=== PATIENT | male | born 1960 | race Caucasian/White ===

== ENCOUNTER 2016-04-15 17:49 | Emergency (ER) | payer BC ==
[2016-04-15] MEDS ORDERED: Morphine INJ* 4 MG/ML 1 ML CARPUJECT ONE (18:15)
[2016-04-15] MEDS ORDERED: Morphine INJ* 4 MG/ML 1 ML CARPUJECT IV ONE (18:19)
[2016-04-15] MEDS ORDERED: HYDROmorphone INJ* 1 MG/ML CARPUJECT SYRINGE ONE (18:53)
[2016-04-15] MEDS ORDERED: LORazepam INJ* 2 MG/ML 1 ML VIAL IV ONE (19:36)
[2016-04-15] MEDS ORDERED: HYDROmorphone INJ* 1 MG/ML CARPUJECT SYRINGE IV ONE (19:36)
--- NOTE | 2016-04-15 19:38 | RAD ---
INDICATION: Left shoulder deformity COMPARISON: None. TECHNIQUE: 2 views of the left shoulder were obtained. FINDINGS: The humeral head appears to be dislocated inferiorly and anteriorly relative to the glenoid labrum. The visualized bones are cortically intact. IMPRESSION: ANTERIOR AND INFERIOR DISLOCATION OF THE LEFT HUMERAL HEAD RELATIVE TO THE GLENOID LABRUM.
[2016-04-15] MEDS ORDERED: oxyCODONE/Acetamin 5/325 MG* TAB PO ONE (20:14)
--- NOTE | 2016-04-15 20:21 | RAD ---
INDICATION: Post reduction attempt COMPARISON: Same day radiograph from 1832 hours TECHNIQUE: 2 views of the left shoulder were obtained on April 15, 2016 at 2008 hours. FINDINGS: The adequately corticated bones are in normal alignment. Joint spaces appear maintained. No fracture, dislocation or focal bony abnormality is seen. IMPRESSION: INTERVAL REDUCTION OF DISLOCATED LEFT SHOULDER. If the patient's symptoms persist, follow-up imaging is recommended.
[2016-04-15 20:59] VITALS: BP 129/60
--- NOTE | 2016-04-17 14:35 | ED ---
Terence Alvares Billy, scribed for Patrick Dodd MD on 04/15/16 at 1840 . Upper Extremity Pain - HPI Summary HPI Summary: Patient is a 55 year-old male coming to [facility] presenting with left shoulder pain with deformity after a fall at 1630. Fall from a wood pile at a height of approximately 3 feet. Improved with sling and appropriate position. ROM to distal hand is intact. Denies any head or neck injury and states that he was wearing a helmet and other protective gear. He reports mild tingling only in the fingers, but no numbness, tingling, or weakness elsewhere. No nausea or dizziness. Denies any previous dislocations. He is RH dominant. He denies any bloodthinner use. No known anesthesia reaction. - History of Current Complaint Chief Complaint: EDExtremityUpper Stated Complaint: FALL Time Seen by Provider: 04/15/16 18:24 Hx Obtained From: Patient Mechanism Of Injury: Fall From Height Of: - 3 feet Onset/Duration: Started Hours Ago, Still Present Timing: Constant Severity Initially: Moderate Severity Currently: Moderate Pain Location: Shoulder Alleviating Factor(s): Rest, Other - position Associated Signs & Symptoms: Positive: Other - tingling only in left fingers. Negative: Weakness, Nausea Related History: Dominant Hand Right - Allergies/Home Medications Allergies/Adverse Reactions: Allergies Allergy/AdvReac Type Severity Reaction Status Date / Time No Known Allergies Allergy Verified 09/22/15 12:30 PMH/Surg Hx/FS Hx/Imm Hx Endocrine/Hematology History: Denies: Hx Anticoagulant Therapy Neurological History: Reports: Other Neuro Impairments/Disorders - Subdural hematoma 2009 - Surgical History Surgery Procedure, Year, and Place: hernia repair as a child, subdural hematoma with surgery Infectious Disease History: No Infectious Disease History: Denies: Traveled Outside the [place] in Last 30 Days - Family History Known Family History: Positive: Hypertension - Social History Alcohol Use: Rare Substance Use Type: Reports: None Smoking Status (MU): Never Smoked Tobacco Review of Systems Negative: Fever Positive: Other - left shoulder pain with deformity Positive: Paresthesia - mild tingling in left fingers. Negative: Weakness, Numbness All Other Systems Reviewed And Are Negative: Yes Physical Exam - Summary Physical Exam Summary: HEENT: Head normocephalic, atraumatic. Pupils are equal, round, and reactive to light. Extraocular muscles intact. No hyphema. There is no septal hematoma. No jaw tenderness. No malalignment of teeth. No hemotympanum. NECK: No midline posterior cervical tenderness. CHEST: No respiratory distress, no tenderness. No crepitus. No flail chest. Lungs are clear to auscultation. CARDIAC: Regular rate and rhythm. SPINE: No tenderness. No step-off. ABDOMEN: Bowel sounds positive. Soft, non-tender. No seatbelt sign. PELVIS: Stable, non-tender. EXTREMITIES: Obvious deformity to left shoulder, neurovascular intact. Skin intact, non-tender. No significant edema. 2+ pulses in all extremities. 5/5 flexor and extensor strength. NEUROLOGICAL: Cranial nerves II-XII intact, 5/5 flexor and extensor strength in bilateral upper and lower extremities, 2+ DTR's throughout, sensation intact to light touch, negative Babinski. Triage Information Reviewed: Yes Vital Signs On Initial Exam: Initial Vitals Temp Pulse Resp BP Pulse Ox 98.5 F 76 15 142/79 95 04/15/16 18:02 04/15/16 18:02 04/15/16 18:02 04/15/16 18:02 04/15/16 18:02 Vital Signs Reviewed: Yes - Aurora Coma Scale Coma Scale Total: 15 Procedures - Joint Reduction Joint Reduction Site: shoulder (L) Conscious Sedation: No Reduction Attempts: 1 Pre-Procedure NV Exam: Yes - intact Post Joint Reduction Film: joint reduced Diagnostics - Vital Signs Vital Signs Temp Pulse Resp BP Pulse Ox 04/15/16 18:19 16 04/15/16 18:02 98.5 F 76 15 142/79 95 - Laboratory Lab Statement: Any lab studies that have been ordered have been reviewed, and results considered in the medical decision making process. - Radiology Left Shoulder X-ray Radiology Interpretation Completed By: Radiologist - ANTERIOR AND INFERIOR DISLOCATION OF THE LEFT HUMERAL HEAD RELATIVE TO THE GLENOID LABRUM. Left Shoulder X-ray (post-reduction) Radiology Interpretation Completed By: Radiologist - INTERVAL REDUCTION OF DISLOCATED LEFT SHOULDER. Re-Evaluation - Re-Evaluation First Eval Re-Evaluation Time: 20:05 Change: Improved Comment: Repeat shoulder x-ray reviewed with patient and family. Successful reduction. Course/Dx - Course Assessment/Plan: 55 year-old male to the ED with a CC of left shoulder dislocation after falling from a pile of wood earlier today. The shoulder was successfully reduced in the ED, confirmed on imaging. He was discharged home with pain management and given instructions to follow up with orthopedics. - Diagnoses Provider Diagnoses: Shoulder dislocation Discharge - Discharge Plan Condition: Stable Disposition: HOME Prescriptions: oxyCODONE/Acetamin 5/325 MG* [Percocet 5/325 TAB*] 1 tab PO Q4H PRN #15 tab MDD 4 PRN Reason: Pain oxyCODONE/Acetamin 5/325 MG* [Percocet 5/325 TAB*] 1 tab PO Q4HR PRN #15 tab MDD 6 PRN Reason: Pain Patient Education Materials: Shoulder Dislocation (ED) Forms: *Work Release Referrals: Kathe Baker MD [Primary Care Provider] - The documentation as recorded by the Terence carrasquillo Billy accurately reflects the service I personally performed and the decisions made by , Patrick Dodd MD.
== END 2016-04-15 20:57 | disposition home or self-care (01) ==
LOC: ED 17:49
DX: S43.035A Inferior dislocation of left humerus, initial encounter (principal); W17.89XA Other fall from one level to another, initial encounter; Y93.9 Activity, unspecified; Y92.9 Unspecified place or not applicable; Y99.9 Unspecified external cause status
CPT/HCPCS: 96374; 96375; 96376; 99283; A9270-GY; J1170; J2060; J2270

== ENCOUNTER 2016-10-15 13:17 | Emergency (ER) | payer BC ==
[2016-10-15] MEDS ORDERED: Morphine INJ* 4 MG/ML 1 ML SYRINGE IV ONE ×2 (13:41→17:24)
[2016-10-15] MEDS ORDERED: NS 0.9% 1000 ML* 1,000 ML IV ONE (13:41)
[2016-10-15] MEDS ORDERED: Ondansetron INJ* 2 MG/ML VIAL IV ONE (13:41)
[2016-10-15 14:20] LABS: Hematocrit 44 % (42-52); Hemoglobin 14.9 g/dl (14.0-18.0); Mean Corpuscular HGB Conc 34 g/dl (31-36); Mean Corpuscular Hemoglobin 31 pg (27-31); Mean Corpuscular Volume 91 fL (80-94); Mean Platelet Volume 8 um3 (7.4-10.4); Red Blood Count 4.81 10^6/ul (4.0-5.4); Red Cell Distribution Width 13 % (10.5-15); White Blood Count 9.9 10^3/ul (3.5-10.8)
[2016-10-15 14:35] LABS: Albumin 4.2 g/dL (3.2-5.2); BUN/Creatinine Ratio 20.4 (8-20); EGFR African American 101.4 (>60); EGFR Non-African American 78.8 (>60); Globulin 2.7 g/dL (2-4); Potassium 3.7 mmol/L (3.5-5.0); Total Bilirubin 1.3 mg/dL (0.2-1.0); Total Protein 6.9 g/dL (6.4-8.9)
[2016-10-15] MEDS ORDERED: Iohexol 300* (CONTRAST) 10 ML SDV IV ONE (14:40)
--- NOTE | 2016-10-15 14:53 | RAD ---
HISTORY: Penetrating trauma to lower extremities COMPARISONS: None VIEWS: 6, Frontal and lateral views of the right foreleg and of the left foreleg FINDINGS: Right: BONE DENSITY: Normal. BONES: There is no displaced fracture. JOINTS: There is no arthropathy. ALIGNMENT: There is no dislocation. The alignment is anatomic. SOFT TISSUES: Unremarkable. Left: BONE DENSITY: Normal. BONES: There is no displaced fracture. JOINTS: There is no arthropathy. ALIGNMENT: There is no dislocation. The alignment is anatomic. SOFT TISSUES: Unremarkable. OTHER FINDINGS: There is no radiopaque foreign body IMPRESSION: NO ACUTE OSSEOUS INJURY BILATERALLY. IF SYMPTOMS PERSIST, RECOMMEND REPEAT IMAGING.
--- NOTE | 2016-10-15 15:36 | RAD ---
HISTORY: Fall, head trauma COMPARISONS: None TECHNIQUE: Multiple contiguous axial CT scans were obtained of the head without intravenous contrast. FINDINGS: HEMORRHAGE/INFARCT: There is no hemorrhage or acute infarct. MASSES/SHIFT: There is no mass or shift. EXTRA-AXIAL SPACES: There are no extra-axial fluid collections. SULCI AND VENTRICLES: The sulci and ventricles are normal in size and position for the patient's stated age. CEREBRUM: There are no focal parenchymal abnormalities. BRAINSTEM: There are no focal parenchymal abnormalities. CEREBELLUM: There are no focal parenchymal abnormalities. VESSELS: The vessels are grossly normal. PARANASAL SINUSES: The paranasal sinuses are clear. ORBITS: The orbits are unremarkable. BONES AND SOFT TISSUE: There is post surgical change to the left skull OTHER: None IMPRESSION: NO ACUTE INTRACRANIAL PATHOLOGY.
--- NOTE | 2016-10-15 15:39 | RAD ---
HISTORY: Fall from 15 foot ladder COMPARISONS: None TECHNIQUE: Multiple contiguous axial CT scans were obtained of the cervical spine without intravenous contrast, with coronal and sagittal multiplanar reformations. FINDINGS: BRAIN: The visualized brain is unremarkable CENTRAL CANAL: Evaluation of the central canal is limited on CT technique; however, there is no obvious canalicular mass or epidural hemorrhage. ALIGNMENT: There is straightening of the cervical lordosis. VERTEBRAL BODIES: There is mild anterolateral marginal osteophyte formation. There is no displaced fracture or dislocation. The odontoid process is intact JOINTS: There is mild uncovertebral and facet osteoarthritis. There is osteoarthritis of the atlantoaxial articulation. MUSCULATURE: Unremarkable INTERVERTEBRAL DISCS: There is diffuse loss of intervertebral disc height. AXIAL IMAGES: C2-C3: There is no osseous neural foraminal narrowing or central canal stenosis. C3-C4: There is no osseous neural foraminal narrowing or central canal stenosis. C4-C5: There is no osseous neural foraminal narrowing or central canal stenosis. C5-C6: There is no osseous neural foraminal narrowing or central canal stenosis. C6-C7: There is no osseous neural foraminal narrowing or central canal stenosis. C7-T1: There is no osseous neural foraminal narrowing or central canal stenosis. SOFT TISSUES: The visualized soft tissues of the neck are unremarkable. The prevertebral fat stripe is preserved. Incidentally noted is medial, submucosal deviation of the carotid arteries. OTHER: None. IMPRESSION: MILD DEGENERATIVE DISC DISEASE AND OSTEOARTHRITIS. NO ACUTE OSSEOUS INJURY TO THE CERVICAL SPINE
--- NOTE | 2016-10-15 15:46 | RAD ---
HISTORY: 15 foot fall COMPARISONS: None TECHNIQUE: Multiple contiguous axial CT scans were obtained of the chest, abdomen, and pelvis after the administration of intravenous contrast. Coronal and sagittal multiplanar reformations are submitted for review.. Oral contrast was not administered. Delayed images were obtained through the abdomen and pelvis. FINDINGS: CHEST NECK AND THYROID: The lower neck and thyroid are unremarkable. CHEST WALL: There is no lower cervical, axillary, or supraclavicular lymphadenopathy by size criteria. HEART AND PERICARDIUM: The heart is unremarkable. AORTA AND PULMONARY VASCULATURE: The aorta and pulmonary vasculature are normal. MEDIASTINUM: There is no mediastinal lymphadenopathy by size criteria. NAINA: There is no hilar lymphadenopathy by size criteria. AIRWAY AND ESOPHAGUS: The airway is unremarkable, without endobronchial filling defect. The esophagus is grossly normal. LUNG PARENCHYMA: The lungs are clear. PLEURA: No pleural abnormalities are noted. BONES AND SOFT TISSUES: Mild degenerative changes are noted ABDOMEN/PELVIS: LIVER: The liver is normal in shape, size, contour, and attenuation. BILE DUCTS: There is no intrahepatic or extrahepatic biliary dilatation. GALLBLADDER: The gallbladder is normal, without pericholecystic inflammatory change. PANCREAS: The pancreas is normal, without mass or ductal dilatation. SPLEEN: Normal in size and appearance. UPPER GI TRACT: Evaluation of the gastrointestinal tract is limited by incomplete gastric distention. The upper GI tract is unremarkable. SMALL BOWEL \T\ MESENTERY: The small bowel is normal in contour, course, and caliber. There is no obstruction or dilatation. COLON: The colon is normal in contour, course, caliber. There is no pericolonic inflammatory change. ADRENALS: Normal bilaterally. KIDNEYS: There is an exophytic cyst of the midpole of the left kidney.. There is no hydronephrosis or nephrolithiasis. BLADDER: The bladder is smooth in contour. PELVIC ORGANS: The pelvic organs are not visualized. AORTA: The aorta is normal. IVC: Unremarkable LYMPH NODES: There is no lymphadenopathy by size criteria. ABDOMINAL WALL: There is no evidence for abdominal wall hernia. BONES: Minimal degenerative changes are noted. OTHER: There is no active arterial extravasation IMPRESSION: NO ACUTE CT PATHOLOGY OF THE VISUALIZED CHEST, ABDOMEN, OR PELVIS
--- NOTE | 2016-10-15 16:13 | RAD ---
indication: Facial trauma following a fall from a ladder. COMPARISON: None A CT scan of the maxillofacial bones was performed without intravenous contrast enhancement. Contiguous axial sections were obtained from the level of the hyoid bone to just above the frontal sinuses. Findings: Partially visualized overlying the left frontal bone (coronal image 54) is a plate and screw fixator. Depicted best on the coronal plane images (image 41 of 97) there is a slightly laterally displaced fracture at the left orbit on the sagittal plane image (image 75) the fracture fragment is seen to be displaced slightly anteriorly. Relative to the contralateral side, there is thinning of the inferior orbital wall with herniation of the orbital fat into the medial superior aspect of the maxillary sinus (coronal image 40) likely representing a minimally displaced inferior orbital wall fracture. Depicted best on the coronal plane images (image 33) there is a minimally displaced fracture through the left medial wall of the orbit. On the axial plane images there is a nondisplaced fracture line crossing the anterior aspect of the hard palate (image 35). There is fracture at the lateral aspect of the maxillary sinus depicted best in the coronal plane images (image 39 through 46). There appears to be a free floating bony fragment in the inferior lateral portion of the maxillary sinus. Depicted best on the axial plane images (image 44) there is a partially comminuted and lateral displaced fracture of the posterior left zygomatic arch. Depicted best on the axial plane images (image 37) there is slight cortical discontinuity involving the lateral most margin of the anterior maxillary sinus wall and the anterior most margin of the lateral wall of the maxillary sinus. Depicted best on the coronal plane images (image 61) there is a slightly laterally displaced fracture involving the lateral pterygoid plate and a slightly medial displaced fracture of the left lateral pterygoid plate. The medial pterygoid plates are intact. There is a minimally displaced bilateral nasal bone fracture displaced towards the patient's right best depicted on the axial plane images (image 47). There is infiltration of the left periorbital fat mostly along the lateral aspect of the globe disease for example coronal image 38) on the axial plane imaging the post septal orbital fat does not exhibit infiltration. There is subcutaneous emphysema overlying the left nasal nasal bone extending to the anterior and lateral maxilla in close apposition to the fracture site. Depicted best in the coronal plane images, there is subcutaneous emphysematous gas tracking along the lateral margins of the bilateral maxillary sinuses and orbits and right lateral pterygoid plate. There is hyperdense material in the bilateral maxillary sinuses most consistent with hemorrhage. IMPRESSION: CT findings are compatible with type III LeFort fracture on the left and type II LeFort fracture on the right. 1. There are minimally displaced fractures involving the lateral, inferior and medial orbital wall with a small amount of orbital fat herniating into the superior left maxillary sinus. Please correlate to extra ocular examination as inferior orbital wall fractures can be associated with entrapment of the inferior rectus muscle. 2. There is infiltration of the preseptal orbital fat associated with the aforementioned fractures. The post septal fat appears normal on this CT examination.
--- NOTE | 2016-10-15 16:41 | ED ---
Belgica Alvares Alok, scribed for Ramona Barcenas MD on 10/15/16 at 1439 . Adult Trauma - HPI Summary HPI Summary: 55M presents to the ED with lacerations/ecchymosis/swelling of the bridge of the nose and left cheek. Pt also has lacerations on both shins and dried epistaxis at both nostrils. Pt reportedly was on a ladder 12-15 ft high when he slipped causing him in fall on his face at approximately 1200 today. Pt applied ice to his face [employer]. Pt denies LOC or blurry vision. PMHx includes HLD. Pt drinks ETOH. - History of Current Complaint Chief Complaint: EDHeadInjury Stated Complaint: FACIAL TRAUMA/FALL Time Seen by Provider: 10/15/16 13:30 Hx Obtained From: Patient Mechanism of Injury: Fall Loss of Consciousness: no loss of consciousness Onset/Duration: Started Hours Ago, Traumatic, Still Present Onset of Pain: Immediate Onset Severity: Moderate Current Severity: Moderate Pain Intensity: 7 Pain Scale Used: 0-10 Numeric Location: Head, Extremities Aggravating Factor(s): Nothing Alleviating Factor(s): Ice Associated Signs & Symptoms: Positive: Ecchymosis. Negative: Loss of Consciousness - Allergy/Home Medications Allergies/Adverse Reactions: Allergies Allergy/AdvReac Type Severity Reaction Status Date / Time No Known Allergies Allergy Verified 09/22/15 12:30 PMH/Surg Hx/FS Hx/Imm Hx Endocrine/Hematology History: Denies: Hx Anticoagulant Therapy Cardiovascular History: Reports: Hx Hypercholesterolemia Neurological History: Reports: Other Neuro Impairments/Disorders - Subdural hematoma 2009 - Surgical History Surgery Procedure, Year, and Place: hernia repair as a child, subdural hematoma with surgery Infectious Disease History: No Infectious Disease History: Denies: Traveled Outside the [place] in Last 30 Days - Family History Known Family History: Positive: Hypertension - Social History Lives: With Family Alcohol Use: Rare Substance Use Type: Reports: None Smoking Status (MU): Never Smoked Tobacco Review of Systems Negative: Fever Negative: Blurred Vision Positive: Epistaxis Positive: Bruising, Other - multible lacerations face with swelling All Other Systems Reviewed And Are Negative: Yes Physical Exam Triage Information Reviewed: Yes Vital Signs On Initial Exam: Initial Vitals Temp Pulse Resp BP Pulse Ox 98.3 F 78 20 132/90 99 10/15/16 13:23 10/15/16 13:23 10/15/16 13:23 10/15/16 13:23 10/15/16 13:23 Vital Signs Reviewed: Yes Appearance: Positive: Well-Appearing, No Pain Distress Skin: Positive: Warm, Skin Color Reflects Adequate Perfusion, Dry, Other - 2cm puncture wounds mid-line shins bilaterally. 4cm laceration bridge of the nose. Brusing nose. No septal hematoma. 4 cm laceration left eye brow with Periorbital hematoma and no hyphema. Large bruise over left cheek with no cuts inside mouth. Eyes: Positive: EOMI, ORAL ENT: Positive: Pharynx normal, TMs normal Neck: Positive: Supple, Nontender Respiratory/Lung Sounds: Positive: Clear to Auscultation, Breath Sounds Present. Negative: Rales, Rhonchi, Wheezes Cardiovascular: Positive: RRR, Other - no gallop. Negative: Murmur, Rub Abdomen Description: Positive: Nontender, Soft, Other: - no rebound. Negative: Distended, Guarding Bowel Sounds: Positive: Present Musculoskeletal: Positive: Strength/ROM Intact. Negative: Edema Left, Edema Right Neurological: Positive: Sensory/Motor Intact, Alert, Oriented to Person Place, Time, CN Intact II-III Psychiatric: Positive: Affect/Mood Appropriate Diagnostics - Vital Signs Vital Signs Temp Pulse Resp BP Pulse Ox 10/15/16 13:23 98.3 F 78 20 132/90 99 - Laboratory Lab Results: Lab Results 10/15/16 10/15/16 10/15/16 Range/Units 14:00 14:00 14:00 WBC 9.9 (3.5-10.8) 10^3/ul RBC 4.81 (4.0-5.4) 10^6/ul Hgb 14.9 (14.0-18.0) g/dl Hct 44 (42-52) % MCV 91 (80-94) fL MCH 31 (27-31) pg MCHC 34 (31-36) g/dl RDW 13 (10.5-15) % Plt Count 175 (150-450) 10^3/ul MPV 8 (7.4-10.4) um3 Neut % (Auto) 81.8 (38-83) % Lymph % (Auto) 11.0 L (25-47) % Sauk % (Auto) 6.0 (1-9) % Eos % (Auto) 0.8 (0-6) % Baso % (Auto) 0.4 (0-2) % Absolute Neuts (auto) 8.1 H (1.5-7.7) 10^3/ul Absolute Lymphs (auto) 1.1 (1.0-4.8) 10^3/ul Absolute Monos (auto) 0.6 (0-0.8) 10^3/ul Absolute Eos (auto) 0.1 (0-0.6) 10^3/ul Absolute Basos (auto) 0 (0-0.2) 10^3/ul Absolute Nucleated RBC 0.01 10^3/ul Nucleated RBC % 0.1 Sodium 138 (133-145) mmol/L Potassium 3.7 (3.5-5.0) mmol/L Chloride 105 (101-111) mmol/L Carbon Dioxide 25 (22-32) mmol/L Anion Gap 8 (2-11) mmol/L BUN 20 (6-24) mg/dL Creatinine 0.98 (0.67-1.17) mg/dL Est GFR ( Amer) 101.4 (>60) Est GFR (Non-Af Amer) 78.8 (>60) BUN/Creatinine Ratio 20.4 H (8-20) Glucose 103 H (70-100) mg/dL Lactic Acid 1.6 (0.5-2.0) mmol/L Calcium 9.0 (8.6-10.3) mg/dL Total Bilirubin 1.30 H (0.2-1.0) mg/dL AST 26 (13-39) U/L ALT 24 (7-52) U/L Alkaline Phosphatase 57 (34-104) U/L Total Creatine Kinase 211 (10-223) U/L Total Protein 6.9 (6.4-8.9) g/dL Albumin 4.2 (3.2-5.2) g/dL Globulin 2.7 (2-4) g/dL Albumin/Globulin Ratio 1.6 (1-3) Result Diagrams: 10/15/16 14:00 10/15/16 14:00 Lab Statement: Any lab studies that have been ordered have been reviewed, and results considered in the medical decision making process. - Radiology Lower Extremity Left XRAY Xray Interpretation: Positive (See Comments) - IMPRESSION: NO ACUTE OSSEOUS INJURY BILATERALLY. IF SYMPTOMS PERSIST, RECOMMEND REPEAT IMAGING. Radiology Interpretation Completed By: Radiologist Lower Extremity Right XRAY Xray Interpretation: Positive (See Comments) - IMPRESSION: NO ACUTE OSSEOUS INJURY BILATERALLY. IF SYMPTOMS PERSIST, RECOMMEND REPEAT IMAGING. Radiology Interpretation Completed By: Radiologist - CT Brain CT CT Interpretation: Positive (See Comments) - IMPRESSION: NO ACUTE INTRACRANIAL PATHOLOGY. CT Interpretation Completed By: Radiologist Cervical Spine CT CT Interpretation: Positive (See Comments) - IMPRESSION: MILD DEGENERATIVE DISC DISEASE AND OSTEOARTHRITIS. NO ACUTE OSSEOUS INJURY TO THE CERVICAL SPINE CT Interpretation Completed By: Radiologist Chest/Abd/Pel CT CT Interpretation: Positive (See Comments) - IMPRESSION: NO ACUTE CT PATHOLOGY OF THE VISUALIZED CHEST, ABDOMEN, OR PELVIS CT Interpretation Completed By: Radiologist Maxillofacial CT CT Interpretation: Positive (See Comments) - IMPRESSION: CT findings are compatible with type III LeFort fracture on the left and type II LeFort fracture on the right. 1. There are minimally displaced fractures involving the lateral, inferior and medial orbital wall with a small amount of orbital fat herniating into the superior left maxillary sinus. Please correlate to extra ocular examination as inferior orbital wall fractures can be associated with entrapment of the inferior rectus muscle. 2. There is infiltration of the preseptal orbital fat associated with the aforementioned fractures. The post septal fat appears normal on this CT examination. CT Interpretation Completed By: Radiologist Adult Trauma Course/Dx - Course Course Of Treatment: 55 yo male with a fall off of a 15 foot ladder this afternoon, CT's all neg except for b/l Le [place] type II fractures. Pt to be transferred. Pt and family agree with plan to work on transfer to [facility] - Diagnoses Provider Diagnoses: Le [place] II fracture, Face lacerations, Puncture wound of left lower leg Discharge - Discharge Plan Condition: Stable Disposition: TRANS HIGHER LVL OF CARE FAC The documentation as recorded by the Belgica carrasquillo Alok accurately reflects the service I personally performed and the decisions made by , Ramona Barcenas MD.
[2016-10-15 16:46] LABS: Urine Bilirubin Negative (Negative); Urine Glucose Negative (Negative); Urine Nitrite Negative (Negative)
[2016-10-15 17:36] VITALS: BP 123/72
== END 2016-10-15 17:57 | disposition short-term general hospital (02) ==
LOC: ED 13:17
DX: S02.412A LeFort II fracture, initial encounter for closed fracture (principal); S01.21XA Laceration without foreign body of nose, initial encounter; S81.812A Laceration without foreign body, left lower leg, initial encounter; W11.XXXA Fall on and from ladder, initial encounter; Y92.9 Unspecified place or not applicable; E78.5 Hyperlipidemia, unspecified; E78.00 Pure hypercholesterolemia, unspecified; S02.80XA Fracture of other specified skull and facial bones, unspecified side, initial encounter for closed fracture; S02.2XXA Fracture of nasal bones, initial encounter for closed fracture; M50.30 Other cervical disc degeneration, unspecified cervical region; M19.90 Unspecified osteoarthritis, unspecified site
CPT/HCPCS: 36415; 70450; 70486; 71260; 72125; 74177; 80053; 81003; 82550; 83605; 85025; 96360; 96374; 96375; 96376; 99283; J2270; J2405; Q9967